=== PATIENT | male | born 1965 | race Two or more races ===

== ENCOUNTER 2022-03-23 07:06 | Day surgery (SDC) | payer OTHER | END 2022-03-23 12:25 | disposition home or self-care (01) | LOC: AMB-ENDOS 07:06 | PROVIDERS: ATTEND Colon & Rectal Surgery | DX: D12.2 Benign neoplasm of ascending colon (principal); D12.3 Benign neoplasm of transverse colon; K57.90 Diverticulosis of intestine, part unspecified, without perforation or abscess without bleeding; R10.32 Left lower quadrant pain; Z20.822 Contact with and (suspected) exposure to COVID-19 ==